=== PATIENT | male | born 1970 | race Caucasian/White ===

== ENCOUNTER 2024-08-31 17:51 | Emergency (ER) | payer OTHER ==
[~2024-08-31] VITALS: Ht 180.3 cm; Wt 99.8 kg
--- NOTE | 2024-08-31 18:06 | NUR ---
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
--- NOTE | 2024-08-31 18:12 | NUR ---
PT ARRIVED TO FACILITY [facility] TO PERSON, PLACE, TIME AND SITUATION. PT IS CURRENTLY ACCOMPANIED BY 3 DIFFERENT OFFICERS. DENIES SI AND HI. DENIES AUDITORY AND VISUAL HALLUCINATIONS AT THIS TIME. CALM AND COOPERATIVE AT THIS TIME. PLACED ON A PICCOLOIST.
--- NOTE | 2024-08-31 19:15 | NUR ---
PT CARE ASSUMED AT THIS TIME
--- NOTE | 2024-08-31 19:59 | ERN ---
ED Note History of Present Illness Stated Complaint: OD Chief Complaint: Overdose Time Seen by MD: 17:56 Time Seen by Midlevel: 17:58 Dictation: 53-year-old male who presents to the emergency department accompanied by the correctional facility employees due to the patient stating that he took a total of 6 extra tablets of Tegretol earlier today. Patient stated that he was not being suicidal but rather he just wanted to get a "high". He denies having any desires to end his life. Patient states that he was just feeling medical melancholic. He states that he had no desire to end his life. Patient states that he was able to acquire this medications from another inmate. Upon initial evaluation, the patient presents in no acute distress. He denies having any headache, nausea, vomiting, abdominal pain or changes in neurological status. Upon initial evaluation, the patient presents in no acute distress. Allergies: Coded Allergies: benztropine (Unverified Allergy, Unknown, 08/31/24) vancomycin (Unverified Allergy, Unknown, 08/31/24) Emergency Care RAIL FILLER: None Past Medical History Past Medical History: High Cholesterol, Hypertension Surgical History: Other PSYCH History: anxiety RN Note Reviewed/Agreed w/PFSH: Yes Review of System Dictation Constitutional: Negative for fever,chills, and weight loss Eyes: Negative for injury, pain,redness, and discharge ENT: Negative for injury,pain or swelling Cardiovascular: Negative for chest pain, palpitations, and edema Respiratory: Negative for shortness of breath, cough, and wheezing, Abdomen/GI: Negative for abdominal pain, nausea, vomiting, diarrhea, and constipation Back: Negative for injury and pain : Negative for injury, bleeding and discharge MS/Extremity: Negative for injury and deformity Skin: Negative for rash, and discoloration Neuro: Negative for headache, weakness, numbness, tingling, and seizure Psych: Negative for suicide ideation, homicidal ideation, and hallucinations Initial Vital Sign VS Vital Signs Date Time Temp Pulse Resp B/P (MAP) Pulse Ox O2 Delivery O2 Flow Rate FiO2 08/31/24 17:56 98.2 70 20 118/90 99 Room Air 08/31/24 18:10 0 21 Physical Exam Dictation General: awake, alert, NAD Head/Face: Normocephalic, atraumatic Eyes: PERRL, EOMI ENT: Oral mucosa moist Neck: Trachea midline, supple Cardiovascular: RRR, no edema Respiratory: Symmetrical, non-labored Abdomen: Soft, non-tender, non-distended, no guarding. Skin: Warm, dry, good turgor, no rash MS/Extremity: Pulses equal, no cyanosis, neurovascular intact, FROM Neuro: COAx4, GCS 15, steady gait, Psych: Normal behavior, mood, and affect normal ED Course ED Course Vital Signs Date Time Temp Pulse Resp B/P (MAP) Pulse Ox O2 Delivery O2 Flow Rate FiO2 08/31/24 19:26 98.2 65 18 122/72 96 Room Air* 0 21 08/31/24 18:10 98.2 64 19 144/82 96 Room Air* 0 21 08/31/24 17:56 98.2 70 20 118/90 99 Room Air Medical Decision Making MDM MDM: Differential diagnosis: Anxiety, major depressive disorder, suicidal ideations. Rationale: Tests considered and ordered secondary to shared decision making include: Previous outside records reviewed: Old ER visits. Risk of complication and/or morbidity or mortality of patient management: None Medications-Per medication reconciliation Need for hospitalization: Patient does not meet criteria for hospitalization. Need for emergency major/minor surgery: No There are no social concerns with this patient. Prescription drug management Prescriptions will include symptomatic care Patient's prior external medical records from other ER visits were reviewed by me as indicated. Prior testing and results from previous visits were reviewed. Prior tests were taken into account with medical decision making and resource utilization, independent historian/historians were used to obtain complete medical history. I independently interpreted the test that were performed, results were reviewed by me and considered findings on radiology if ordered. Medical management and examination interpretation discussions were had by me with other qualified healthcare professionals as indicated for the patient's care. DX & DISP Disposition: Discharge Departure Impression: Primary Impression: Overdose by ingestion Condition: Stable Referrals: SELF,REFERRAL (PCP) Time of Disposition: 19:59 JAYNA PHELAN Aug 31, 2024 19:59
[2024-08-31 20:00] VITALS: BP 135/75; PULSE 67; RESP 18; TEMP 98.2; O2SAT 96
== END 2024-08-31 20:12 | disposition home or self-care (01) ==
LOC: EDH 17:51 → EEVIPCON 17:51 → EDH 20:12
DX: T42.1X1A Poisoning by iminostilbenes, accidental (unintentional), initial encounter (principal); E78.00 Pure hypercholesterolemia, unspecified; I10 Essential (primary) hypertension; Z88.1 Allergy status to other antibiotic agents; Y92.89 Other specified places as the place of occurrence of the external cause
CPT/HCPCS: 99283